=== PATIENT | female | born 1945 | race Caucasian/White ===

== ENCOUNTER 2020-02-11 13:49 | Inpatient (IN) | payer OTHER ==
[~2020-02-11] VITALS: Ht 152.4 cm; Wt 47.2 kg
[2020-02-11 13:51] VITALS: BP 135/107
[2020-02-11 15:45] LABS: BASOPHILS 0.9 % (0.0-2.0); EOSINOPHILS 3.6 % (0.0-3.0); HEMATOCRIT 40.6 % (37.0-47.0); HEMOGLOBIN 13.5 gm/dL (12.0-15.0); MCH 31.3 pg (26.0-34.0); MCHC 33.2 g/dL (28.0-37.0); MCV 94.3 fL (80.0-100.0); MONOCYTES 11.1 % (1.0-8.0); PLATELET COUNT 237 thou/uL (150-400); POLYS 47.4 % (36.0-66.0); RBC 4.31 mil/uL (4.20-5.00); RDW 13.2 % (10.5-14.5); WBC 6.4 thou/uL (4.0-11.0)
[2020-02-11 15:57] LABS: ANION GAP 8 mmol/L (7-16); BUN 15 mg/dL (7-18); CALCIUM 8.8 mg/dL (8.5-10.1); CHLORIDE 105 mmol/L (98-107); CO2 29 mmol/L (21-32); CREATININE 0.9 mg/dL (0.6-1.0); GLUCOSE 206 mg/dL (74-106); POTASSIUM 3.8 mmol/L (3.5-5.1); SODIUM 142 mmol/L (136-145)
[2020-02-11 16:03] LABS: SGOT < 5 U/L (15-37); SGPT 202 U/L (30-65); TOTAL BILIRUBIN 0.7 mg/dL (0.2-1.0); TOTAL PROTEIN 6.5 g/dL (6.4-8.2)
[2020-02-11 18:01] LABS: URINE BILIRUBIN NEGATIVE (Negative); URINE BLOOD NEGATIVE (Negative); URINE CLARITY CLEAR; URINE COLOR YELLOW; URINE GLUCOSE-RANDOM* 1+ (Negative); URINE KETONES NEGATIVE (Negative); URINE LEUKOCYTES-REFLEX NEGATIVE (Negative); URINE NITRITE-REFLEX NEGATIVE (Negative); URINE PROTEIN (DIPSTICK) NEGATIVE (Negative); URINE SPECIFIC GRAVITY 1.025 (1.005-1.035)
[2020-02-11] MEDS ORDERED: ARICEPT10 M1 PO (18:15)
[2020-02-11] MEDS ORDERED: LIPITOR40 MG PO (18:15)
[2020-02-11] MEDS ORDERED: PLAVIX 75 MG TA75 MG PO (18:15)
[2020-02-11] MEDS ORDERED: TOPROL XL25 MG PO (18:16)
[2020-02-11] MEDS ORDERED: NITROSTAT0.4 M1 DISSOLVE (18:16)
[2020-02-11] MEDS ORDERED: CLARITIN10 MG PO (18:16)
[2020-02-11] MEDS ORDERED: SEROQUEL 25 MG25 MG PO (18:17)
[2020-02-11] MEDS ORDERED: REMERON15 M2 PO (18:17)
[2020-02-11 18:57] VITALS: BP 135/107
[2020-02-11 20:45] VITALS: BP 126/82
--- NOTE | 2020-02-11 21:58 | NUR ---
PATIENT ADMITTED AND BROUGHT TO [facility] FROM ED BY AT 2020. SHE IS QUIET AND SUBDUED AND A/0X1. PATIENT HAD HAD GEODON 5MG IM IN ED AT 1447 AND HAD BEEN RESTING SINCE. PATIENT WAS [place] [facility] [place] TO INCREASED AGITATION AND COMBATIVENESS WITH ALZHEIMERS/DEMENTIA. PATIENT WAS FEELING COLD AND PHYSICAL ASSESSMENT LIMITED D/T PATIENT'S IMPATIENCE AND FEELING COLD. SKIN INTACT. NO WOUNDS SEEN. LUNGS CTA BILATERALLY. NO EDEMA. HEART RATE S1S2 HEARD. BOWEL SOUNDS POSITIVE X4. ABDOMEN NONTENDER. PATIENT DENIES PAIN. PATIENT HAS [employer] INSURANCE. SHE CURRENTLY IS UNDER THE CARE OF A NEUROLOGIST ADÁN NIELSON MD AT [facility]. SPOKE WITH PATIENT'S BROTHER ED OLDER AND HIS FAROOQ WHO ARE DPOA'S FOR PATIENT. HE STATES PATIENT SHUFFLES WHEN SHE WALKS. SHE USES A WALKER. SHE IS OBSTINATE AND STRONG WILLED PER DPOA. 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 SHE DENIES AVH/SI/HI AT THIS TIME BUT LIMITED EVAL D/T DEMENTIA. DPOA STATES SHE HAS HISTORY OF AVH'S. SHE HAS RECENTLY HAD THE DELUSION THAT SHE RECENTLY AND HAS A DAUGHTER AND THIS MAKES HER HAPPY. PATIENT HAS HISTORY OF ALZHEIMER'S DEMENTIA, HLD, TIA, CAD, OA, DM2 (WHICH IS DIET CONTROLLED). SHE HAD LEFT HIP REPLACED 10YEARS AGO AND FAMILY STATES SHE HAS NEVER BEEN THE SAME SINCE AND STARTED DECLINING. PATIENT HAS BEEN AT [facility] [place] [facility]ARS AND HAS BEEN IN [facility]IVE LIVINGS OR NH'S FOR PAST 4 YEARS. SHE IS NOT ALLERGIC TO ANY MEDS. SHE IS A FULL CODE. PATIENT HAS A HISTORY OF RECENT FALLS. SHE WILL NEED ASSIST X 1 ON TRANSFERS AND WALKING WITH WALKER. PATIENT IS ON BLOOD THINNER, PLAVIX. INCONTINENT AT TIMES OF URINE AND STOOL. DPOA'S ARE NOT WANTING PATIENT TO STAY ON [facility] FOR MORE THAN 4 [address]. [address] ARE WANTING DR VASQUEZ,DO TO CONTACT THEM SOON HE HAS A PLAN FOR PATIENT TO DISCUSS HOW SOON SHE CAN GO BACK TO [facility]. TONIGHT, PATIENT'S AFFECT IS FLAT AND PATIENT IS DROWSY. SHE IS SLEEPING AT THIS TIME. BED IN LOW POSITION AND BED ALARM IS ON AND WALKER BESIDE BED. ROUTINE ROUNDS TO ASSESS PATIENT'S STATUS AND SAFETY. TELEPHONE CONSENTS FOR TREATMENT ETC RECEIVED BY ED OLDER DPOA AT 2115. HOSPITALISTEricaDIRECTOR OF AGRONOMY NOTIFIED OF NEW ADMIT AND WILL BE UNDER DR CANNON'S CARE. WILL CONTINUE TO MONITOR.
--- NOTE | 2020-02-12 02:28 | NUR ---
PATIENT HAS BEEN SLEEPING SOUNDLY SO FAR TONIGHT. BED IN LOW POSITION AND BED ALARM IS ON. WALKER AT BEDSIDE. WILL CONTINUE TO MONITOR.
[2020-02-12 07:27] VITALS: BP 134/92
[2020-02-12 08:00] VITALS: BP 134/92
--- NOTE | 2020-02-12 08:18 | NUR ---
PT NEEDED ASSISTANCE THIS AM TO USE BATHROOM. PT DIDN'T WANT TO HAVE BRIEF CHANGED THIS AM WITHOUT SOME RESISTANCE. PT NOT HITTING STAFF JUST NOT WANTING TO HAVE HELP. PT BRIEF WAS DRY. PT WAS UP TO BATHROOM WITH WALKER, NEEDED W/C FOR DINING AREA. PT DID REFUSE MEDS THIS AM. PT STATED THAT SHE DIDN'T NEED IT. OFFERED PT WATER. PT STATED SHE DIDN'T NEED IT AND TAKE IT AWAY. PT IRRITATED WITH STAFF TRYING TO GIVE MEDICATION, PT ELBOWED STAFF AND WAS WANTING TO THROW MED CUP. PT HAS TRAY INFRONT OF HER AND SHE ISN'T EATING.
--- NOTE | 2020-02-12 10:50 | NUR ---
PT TALKING TO REC THERAPY. PT PICKED OUT A CARD IN THE [facility] AND SHOWED REC THERAPY A PIC OF HER SON. SHE ALSO HAD EGGS ON HER CHAIR AND STATED THAT THE DOG WAS EATING WITH HER AND IS MESSY.
--- NOTE | 2020-02-12 12:17 | NUR ---
ATTEMPTED TO GIVE SEROQUEL CRUSHED IN YOGAR. PT REFUSING TO EAT OR TAKE A BIT OF IT.
--- NOTE | 2020-02-12 12:20 | NUR ---
ATTEMPTED TO GIVE PT SEROQUEL IN YOGART. PT REFUSING TO EAT. PT ASKING FOR GRANNY AND ALSO HAVING VISUAL HALLUCINATIONS TALKING TO SOMEONE NOT THERE.
--- NOTE | 2020-02-12 12:35 | NUR ---
GIVING SHOT OF OLAZIPINE 2.5MG IM FOR REFUSAL OF PO SEROQUEL.
--- NOTE | 2020-02-12 14:01 | NUR ---
PT SITTING IN DINING ROOM STILL AND TALKING TO SELF. PT DIDN'T EAT BREAKFAST OR LUNCH TODAY.
--- NOTE | 2020-02-12 14:36 | NUR ---
GAVE PT SOME ICE CREAM FOR SNACK. PT IS NOT EATING.
--- NOTE | 2020-02-12 16:21 | NUR ---
ATTEMPTED TO GIVE SEROQUEL CRUSHED IN ICE CREAM. PT REFUSED. STATED TO PT SHE HASN'T ATE ALL DAY SHE STATED SHE DID AND THIS DIRECTOR EMPLOYEE COMMUNICATIONS HASN'T BEEN HERE. SHE TOOK DIRECTOR EMPLOYEE COMMUNICATIONS HAND AND DUG HER NAIL INTO DIRECTOR EMPLOYEE COMMUNICATIONS RT PALM.
--- NOTE | 2020-02-12 16:36 | NUR ---
PT REFUSED PO SEROQUEL. GOING TO ADM ZYPREXIA 2.5MG IM TO LEFT DELTOID.
--- NOTE | 2020-02-12 17:46 | NUR ---
PT HAS REFUSED TO EAT, DRINK, AND TAKE MEDS THIS SHIFT. PT BRIEF WAS WET THIS AM. PT WAS CHECKED AT 1650. NO URINE AT THIS TIME.
[2020-02-12 19:22] VITALS: BP 123/57
--- NOTE | 2020-02-12 21:51 | H ---
[facility] [place] [address] HISTORY AND PHYSICAL Name: CADEN VALDEZ Room #: 518A-A ADM IN M.R.#: [id number] Admission: 02/11/20 Attend Phys: Jeffrey Piper DO Discharge: Date of : 45 Report #: [id number] THIS REPORT FOR: cc: NELI - No family physician/PCP FAM - No family physician/PCP Jeffrey Piper DO ~ CC: Jeffrey QUINTEROS physician/PCP DATE OF SERVICE: 02/12/2020 INPATIENT PSYCHIATRIC EVALUATION ATTENDING PHYSICIAN: Jeffrey Piper D.O. ETCHER ENAMELING: Yoan Boateng M.D. REASON FOR ADMISSION: Combativeness, agitation, impulsive behavior at [facility]. SOURCES OF INFORMATION: Notes from nursing facility, some outside records, Emergency Room notes, telephone conversation with her brother, Gen, who is her DPOA. HISTORY OF PRESENT ILLNESS: This is a 74-year-old female, frail appearing, in wheelchair. Height 152.4 cm, BMI 22.1. The patient was interviewed in the Emergency Room briefly yesterday as well as in the dining room today. The patient has a roughly 5-year history of a neurodegenerative disorder with 1 year of nursing facility placement. Most of that has been in memory care. PAST MEDICAL HISTORY: Extensive and includes hyperlipidemia, historical myocardial infarction, TIAs in the past, unspecified dementia, osteoarthritis, atherosclerotic heart disease, history of left foot fracture, abnormal weight loss, etc. The patient's medical diagnoses include hypertension, diabetes mellitus, left hip, adenomatous polyp of the colon, hyperlipidemia, diabetes mellitus type 2, CAD, cyanocobalamin deficiency. SOCIAL HISTORY: Remote former smoker. No tobacco. No alcohol or drug use. States [facility] saw her. She was hitting and kicking. She sat on the floor, would not let anyone get her off the floor. She was given 5 mg of Haldol. Her Seroquel was increased to 75 mg 3 times a day. The patient is refusing to take p.o. meds. She also is refusing to eat. These issues have continued. This morning, she refuses to take her p.o. meds. She has been sitting in common area and remains agitated. She was hitting and kicking, hard [facility] [address] [place] [address] HISTORY AND PHYSICAL Name: CADEN VALDEZ Room #: 518A-A [facility] IN .R.#: [id number] Admission: 02/11/20 Attend Phys: Jeffrey Piper DO Discharge: Date of : 45 Report #: [id number] to redirect. That is when this provider elected to send her to [facility] and it was Boy Fontenot who made that decision. MEDICATIONS: At [facility], Seroquel 50 mg by mouth 3 times a day for hallucinations. Her DPOA's name is Gen Butler at [phone]. The patient at this point, I believe, is a full code. Other medications at [facility], atorvastatin 40 mg daily, liquid clopidogrel 75 mg daily, donepezil 10 mg by mouth, loratadine 20 mg, metoprolol succinate 25 mg p.o. daily, Nitrotap p.r.n., Remeron 15 mg. Seroquel 25 mg 3 times a day, I guess that is aggregated 75 mg 3 times a day. LABORATORY DATA: From the Emergency Room here at [place] are as follows: White blood cell count 6.4, H and H 13.5 and 40.6, platelet count 237. Chemistries: Sodium 142, potassium 3.9, chloride 105, bicarbonate 29, anion gap 8, BUN 15, creatinine 0.9, estimated GFR 61, glucose 206. A1c has been ordered, not received. Calcium 8.9, total bilirubin 0.7, AST less than 5, ALT is high at 202, alkaline phosphatase normal at 86, total protein 6.5, albumin low at 3.0. B12 and 1,25-dihydroxy has been ordered and has not received, and that is incorrect, it should be a D,25, not a 1,25, so I will change that. From the Emergency Room yesterday, a 12-lead EKG was done, showed QTC 470, QT 474, MS interval 127, ventricular rate 59, sinus rhythm, otherwise grossly normal. REVIEW OF SYSTEMS: From the Emergency Room, limited secondary to dementia. PHYSICAL EXAMINATION: VITAL SIGNS: This a.m., temperature 36.9, pulse 53, respirations 14, BP 134/92, O2 sat 99%. MUSCULOSKELETAL: Seated in wheelchair. Gait not tested. MENTAL STATUS EXAMINATION: This is a well-developed, frail, somewhat, ill-appearing female, appearing stated age. She is oriented to person, does not know where she is at. Does not know the day of the week. No psychomotor agitation. No psychomotor retardation. Speech slow, soft. Thought process: Linear and limited. Thought content: Relative poverty of thought. Mood and affect: Congruent, constricted. Memory: Not formally tested, noted to be impaired. Denied suicidal or homicidal ideations. Denied auditory, visual, or tactile hallucinations. Insight: Limited. Judgment: Impaired. Fund of knowledge: Below average. FORMULATION: A 74-year-old female sent from [facility] for behavioral decompensation. PLAN: Evaluate, stabilize, obtain collateral. DIAGNOSES: At this time, major neurocognitive disorder, likely due to Alzheimer's disease with behavioral disturbance. Other morbidities including [facility] [address] [place] [address] HISTORY AND PHYSICAL Name: CADEN VALDEZ Room #: 518A-A ADM IN ..#: [id number] Admission: 02/11/20 Attend Phys: Jeffrey Piper DO Discharge: Date of : 45 Report #: [id number] hypertension, history of coronary artery disease, hyperlipidemia. With regards to her medications, we will reduce mirtazapine to 7.5 mg p.o. at bedtime. I will go ahead and increase her Seroquel, was going to do 25 at 9 and 3 and 75 at night. We will make that 75 three times a day to start. However, she is refusing, so she did get a 2.5 mg olanzapine backup injection today. Continue Plavix 75 mg p.o. daily, Mylanta, metoprolol succinate 25 mg p.o. daily. Evaluate, stabilize. ESTIMATED LENGTH OF STAY: 7-10 days. I spoke with her older brother, discussed, and actually she is going to be a no code, that we would need to back up the medications. Risks, benefits, alternatives of antipsychotics including the risk of stroke and were discussed. She consented. STRENGTHS: She is insured, has supportive family and DPOA. WEAKNESSES: She does have fairly advanced major neurocognitive disorder as well as some comorbidities. Time spent on interview, review of records, coordination of care was at least 30 minutes with at least 60 minutes spent on general physical, history taking, interview. <ELECTRONICALLY SIGNED> By: Jeffrey Piper DO 02/12/20 [id number] Jeffrey Piper, /nt
[2020-02-12 22:20] VITALS: BP 123/57
--- NOTE | 2020-02-13 01:28 | NUR ---
Assumed care of patient this pm shift. Patient sitting in mileu. Patient would not answer questions this evening and just sat in the chair during her assessment. Patients affect is flat. Patient is alert and oriented to self only. Patient can take medications whole but refused them this evening stating that medications do not do any good. Patient recieved an IM injection of olanzipine instead of PO medications. Patients assessment shows no signs of acute distress. Patient is a falls risk and has on a yellow shirt. Patient did not voice any concerns or questions this evening. We will continue to monitor per hospital policy.
[2020-02-13 02:06] LABS: GLYCOHEMOGLOBIN (HGB A1C) 6.3 % (4.8-5.6)
[2020-02-13 06:49] LABS: CREATININE 0.8 mg/dL (0.6-1.0); POTASSIUM 4.1 mmol/L (3.5-5.1)
--- NOTE | 2020-02-13 08:53 | EKG ---
[facility] [place] [address] ELECTROCARDIOGRAM REPORT Name: COURTNEYCADEN Room #: [facility]- ADM IN M.R.#: [id number] Admission: 02/11/20 Attend Phys: Jeffrey Piper DO Discharge: Date of : 45 Report #: [id number] THIS REPORT FOR: cc: NELI - No family physician/PCP NELI - No family physician/PCP Rober Barker MD [facility] ~ THIS REPORT FOR: //name// [facility] ED Test Date: 2020-02-11 Test Time: 17:42:23 Pat Name: CADEN VALDEZ Department: Room: [facility] Gender: F Spa Host: ivy : 1945 Requested By: Omi Gerardo Order Number: [id number] MD: Rober Barker Measurements Intervals Warren Rate: 59 P: 39 DC: 127 QRS: -34 QRSD: 84 T: 119 QT: 474 QTc: 470 Interpretive Statements Sinus rhythm Multiple premature complexes, vent & supraven Left axis deviation Abnormal R-wave progression, late transition Nonspecific T wave abnormality No previous ECG available for comparison Electronically Signed On 02-13-2020 8:53:16 CDT by Rober Barker [email or web address] <ELECTRONICALLY SIGNED> By: Rober Barker MD, [facility] 02/13/20 [id number] Rober Barker MD, [facility] /EPI
--- NOTE | 2020-02-13 12:20 | NUR ---
Michoacano spoke with [facility] and provided an update. Michoacano also faxed updates, completed the intake assessment and TP.
--- NOTE | 2020-02-13 12:22 | NUR ---
LATE ENTRY- MARY and DR Piper spoke with pt's DPOA Gen yesterday and provided a report and gained some collatoral information
--- NOTE | 2020-02-13 16:36 | NUR ---
Sitting in WC most of AM, resistant to VS, cares and meds. Alert to name only. Responds to questions with "I can if I want." but then continues to be uncooperative. Speaks to unseen people frequently talking to "Granny." Calm when undisturbed, pinching, scratching and attempting to bite when approached for care. Took meds crushed in chocolate syrup after requesting "Chocolat" multiple times. Denies SI/HI. Breath sounds clear t/o. Reg HR auscultated. Color pink with brisk capillary refill and palpable peripheral pulses. No edema noted. Mucous membranes moist t/o day. Brief dry, bladder scan done [address] Piper aware. Abdomen soft and rounded. No BM documented since admission. Placed in wander chair after lunch with legs elevated.
[2020-02-13 19:58] VITALS: BP 99/72
--- NOTE | 2020-02-13 22:54 | NUR ---
Care of patient assumed at 1915. Patient is sitting at a table in the day room. Calm and cooperatived upon approach. A/O x 2. Denies pain. Denies SI/HI. Says that people are coming in and stripping off her clothes during the day. HS, LS, BS normal. Agrees to take medications if mixed in chocolate syrup. Attempted to administer, and patient spit pills out. Olanzapine 3.75mg IM administered for refusal of oral meds as ordered. Patient dozes on/off in the recliner, then is taken to bed at 2230. Patient is combative with trnasfer.
[2020-02-14 07:49] VITALS: BP 126/99
[2020-02-14 09:33] VITALS: BP 126/99
--- NOTE | 2020-02-14 11:37 | NUR ---
1130 RESUMMED CARE THIS AM FROM OVERNIGHT, PATIENT IN DAY ROOM SITTING QUIET. PATIENT ATE BREAKFAST TOOK MEDICATION WITHOUT INCIDENCE, PATIENT DENIES SI/HI/AH/VH AT PRESENT. PATIENT RECEPTIVE TO ASSESSMENT PATIENTS ABDOMEN SOFT ROUND. BOWEL SOUNDS PRESENT LUNGS CLEAR SKIN PINK MOIST NO SKIN TEARS. PATIENT CALM COOPERATIVE ORIENTED TO SELF ONLY. WILL CONTINUE TO MONITOR PATIENT FOR SAFETY AND BEHAVIORS.
[2020-02-14 19:39] VITALS: BP 130/98
--- NOTE | 2020-02-15 02:28 | NUR ---
8 CARE TRANSERED 0 OBSERVED PT IN DAY ROOM SITTING IN RECLINER. 1950 PT AAOX1, PT PRESENTS CONFUSED AND IRRITABLE WITH FLAT EFFECT BUT COOPERATIVE THROUGHOUT NURSING ASSESSMENT. PT REPORTED IT CLOSE TO CAT, DID ANSWER 2019 ON YEAR, PT WAS REORIENATED TO DATE, PT STATED "TOLD YOU IT WAS CLOSE TO CAT". PT DENIED ANY NEW CONCERS AT THIS TIME. PT DID REPORT GENERALIZED PAIN, ACHING AND SCALED PAIN 5 ON 0-10 SCALE. DURING MEDICATION ADMIN PT SPIT OUT SOME OF MEDICATION THAT WAS CRUSHED IN APPLESAUCE, PT REPORTED "I DON'T NEED ANY OF THESE MEDICATION". DURING REASSESSMENT PT SCORED PAIN AT 3 ON 0-10 SCALE. ZERO S/S OF ACUTE EMOTIONAL OR MEDICAL DISTRESS NOTED. WILL CONTINUE TO MONITOR PER [facility] PROTOCOL.
[2020-02-15 07:40] VITALS: BP 101/70
[2020-02-15 09:33] VITALS: BP 101/70
--- NOTE | 2020-02-15 10:31 | NUR ---
1020 RESUMMED CARE FROM OVERNIGHT SHIFT THIS AM, PATIENT IN DAY ROOM IN RECLINER QUIET. PATIENT DID NOT EAT MUCH BREAKFAST TOOK MEDICATTION CRUSHED IN APPLESAUCE. PATIENTS ABDOMEN SOFT FLAT BOWEL SOUNDS PRESENT LUNGS CLEAR. PATIENT DENIES SI/HI/AH/VH AT PRESENT, PATIENT CONFUSED AT TIMES ORIENTED TO SELF ONLY. PATIENT SLEEPS OF AND ON IN RECLINER PATIENT SOMETIMES COMBATIVE WITH CARES. WILL CONTINUE TO MONITOR PATIENT FOR BEHAVIORS AND SAFETY.
--- NOTE | 2020-02-16 01:24 | NUR ---
02-15-20 CARE TRANSFERED AT 1900 OBSERVED PT SITTING IN RECLINER IN DAY ROOM. 2049 PT AAOX1 PRESENTS DELUSIONAL STATED "I WAS TODAY, ISN'T THE ANABAPTIST BEAUTIFUL". WHEN TRYING TO REORIENTATED PT TO PRESENT PT BECAME IRRITABLE AND PT STATED "I KNOW I AM OLD". PT WAS COOPERATIVE BUT IRRITABLE BUT DID DENIES SI/SH/HI/VAH AND PAIN. PT VSS, RR EVEN AND NONLABORED ON RA. DURING MEDICATION ADMIN PT STATED I WILL TAKE MY MEDICATION THEN REFUSED TO OPEN MOUTH FOR MEDICATION IN APPLESAUCE. PT STARTED BECOMING AGITATED. PT REPORTED "I DON'T NEED ANY MEDICATION", PT HIGHLY AGITATED AND IM WAS ADMIN PER HCP ORDERS. DURING IM PT REPORTED "SHE WAS HOLDING HER NEW BABY" OBSERVED PT SLOWLY ROCKING BACK AND FORTH IF SHE WAS HOLDING A BABY. TRIED TO REDIRECT PT AND PT BECAME AGITATED. DURING NEXT ROUND NOTED PT WAS LEFT SIDE LYING WITH EYES CLOSED, RR EVEN AND NONLABORED ON RA. ZERO S/S OF ACUTE EMOTIONAL OR MEDICAL DISTRESS NOTED. WILL CONTINUE TO MONITOR PER [facility] PROTOCOL.
[2020-02-16 07:20] VITALS: BP 95/71
[2020-02-16 11:07] VITALS: BP 123/73
[2020-02-16 11:19] VITALS: BP 123/73
--- NOTE | 2020-02-16 12:32 | NUR ---
Pt was in lounge chair this am . Pt was seemed distracted lisening and talking to some one else not seen, by staff. Pt was not medication compliant . Im Geodon given as ordered at 10:00 am for not taking any po medications. Pt responds to what is said to her but has a combative and irritable response.. Dr quintana aware. Pt did not eat any breakfast or or fluids even with much encouragement Lunch mediciation was given with yogart (1 tesp. with crushed medcation in it. Staff encouraged pt to try to eat and drink. staff continues to be observed. .
[2020-02-16 19:41] VITALS: BP 83/61
--- NOTE | 2020-02-16 21:16 | NUR ---
Care of patient assumed at 1915. Patient is sitting in a recliner in the day room. Patient is noted to be attending to internal stimuli, appearing to listen to and repsond to unseen entities. When approached, patient answers to her name oliver, daphney jacobsen "don't you touch me" when asked if heart sounds could be ausculated. From that point forward patient is hostile and uncooperative. Refuses HS meds. Dr. Piper notified of refusal.
[2020-02-17 07:31] VITALS: BP 133/85
--- NOTE | 2020-02-17 08:53 | NUR ---
MARY sent faxes over the weekend as updates. Today MARY called and left a VM with admissions that this pt might be ready to d/c at the end of this week back to [facility]
[2020-02-17 09:50] VITALS: BP 133/85
[2020-02-17 10:27] VITALS: BP 133/85
[2020-02-17 10:40] VITALS: BP 133/85
--- NOTE | 2020-02-17 11:43 | NUR ---
1115 RESUMMED CARE FROM OVERNIGHT SHIFT THIS AM, PATIENT IN DAY ROOM IN A RECLINER. PATIENT A LITTLE OF HER BREAKFAST AND TOOK MEEICATION CRUSHED IN CHOCOLATE PUDDING. PATIENT NOT ABLE TO VERBALIZE SI/HI/AH/VH AT PRESENT DUE TO COGNITIVE DISTURBAMCE. PATIENTS ABDOMEN SOFT ROUND BOWEL SOUNDS PRESENT LUNGS CLEAR. PATIENT HAS CONFUSION AND ORIENTED TO SELF ONLY PATIENT SOMETIMES COMBATIVE WITH CARES. WILL CONTINUE TO MONITOR PATIENT FOR SAFETY AND BEHAVIORS.
--- NOTE | 2020-02-17 13:25 | NUR ---
MICHOACANO spoke with GANGA Blevins and provided an update. he was under impression that this pt was discharging today or tomorrow. Michoacano provided education and reassuance that d/c was likelt later this week - as she has been non complaint with meds and will need some more compliance to be ready for the NH. Michoacano did speak with admissons at an they brought the updates to their DON and are reviewing.
[2020-02-17 20:05] VITALS: BP 106/73
--- NOTE | 2020-02-18 03:32 | NUR ---
Care of patient assumed at 1915. Patient is dozing in a recliner in the day room. Initially pleasant upon approach, but quickly get irritated (after 2 questions) and refuses to answer more. Attempted again with medications but patient refused. Assisted to toilet and then to bed at 2200.
[2020-02-18 07:53] VITALS: BP 111/57
[2020-02-18 10:15] VITALS: BP 111/57
--- NOTE | 2020-02-18 12:05 | NUR ---
1200 RESUMMED CARE FROM OVERNIGHT SHIFT THIS AM, PATIENT IN RECLINER IN DAY ROOM LYING QUIET. PATIENT IS UNABLE TO TELL YOU ABOUT SI/HI/AH/VH DUE TO COGNITIVE DELAYS. PATIENT HAS CONFUSION AND IS FORGETFUL PATIENTS ABDOMEN SOFT FLAT BOWEL SOUNDS PRESENT. PATIENTS LUNGS CLEAR PATIENT EATS VERY LITTLE HER MEDS ARE CRUSHED IN PUDDING. PATIENT IS COMBATIVE WITH CARES WILL CONTINUE TO MONITOR PATIENT FOR BEHAVIORS AND SAFETY.
--- NOTE | 2020-02-18 19:18 | NUR ---
Care of patient assumed at 1915. Patient is sitting in recliner in day room. Confused and disoriented, but cooperates with physical assessment. HS, LS, BS normal. Denies pain. Patient answers with nonsensical responses to further questions. Falls asleep in recliner. Taken to toilet, then bed at 2200. Patient combative with industrial locomotive operator assisting her.
--- NOTE | 2020-02-19 09:05 | NUR ---
[facility]ano faxed updates to [facility]
[2020-02-19 13:46] VITALS: BP 112/78
[2020-02-19 13:48] VITALS: BP 112/78
--- NOTE | 2020-02-19 13:49 | NUR ---
REFUSED ALL AM MEDICATIONS AND INITALLY REFUSED VS FOR FULLING MACHINE OPERATOR-DID ALLOW JOSÉ BP/PULSE RESPIRATION CHECK AT APPROX 1345 WITH MUCH ENCOURAGEMENT-WHEN APPROACHED BY STAFF IS NOTED TO HAVE ANGRY FACIAL EXPRESSION- STATES "GET AWAY LEAVE ME ALONE-JUST LEAVE ME ALONE" MINIMQALLY COOPERATIVE WITH PHYSICAL ASSESSMENT BUT DENIES C/O PAIN/DISCOMFORT. REPOSITIONED IN GERICHAIUR SEVERAL TIMES SLIDES DOWN AND CURLS SELF IN POSITION-COMBATIVE WITH REPOSITIONING AND INCONTINENT CARE. ORIENTED TO NAME ONLY-APPEARS SUSPICIOUS OF STAFF "I DON'T WANT YOUR KIND OF HELP GOD ONLY KNOWS WHAT YOU WOULD DO TO ME"SKIN W/D-REFUSES TO ALLOW TEMP ORALLY AND BEGINS TO STRIKE OUT WITH ATTEMPTS AT AXILLARY CHECK- DOES NOT FEEL WARM TO TOUVH BUT WILL REAPPROACH AT LATER TIME
--- NOTE | 2020-02-19 20:11 | NUR ---
Assumed care on 02/19/20 @ 19:15, lying in a wander chair in the day room, curled up in a position. When spoken to opens eyes and responds verbally however, answers a different question than asked. Cane give name and month and day of , but gives the year as 1982. Reports we are in [facility], but cannot say the hospital name or even acknowledge that she is in a hospital. Allows auscultation of lungs (CTA) a cough is noted during assessment, and allows abdomen (N BS), says BM information is none of my business. Guards her left chest and does not allow this nurse to auscultate heart sounds. Clear voice, however confused and speaks nonsense grouping of words at times in a word salad manner.
--- NOTE | 2020-02-20 05:52 | NUR ---
Slept in bed, eyes closed, respirations even and unlabored. Bed in low position, bed alarm set. Monitoring q 12 minutes as per protocol.
[2020-02-20 07:40] VITALS: BP 129/68
--- NOTE | 2020-02-20 11:00 | NUR ---
Michoacano spoke with Mohan at [facility] and Michoacano provided a report that included d/c expected on Sunday with hospice. MICHOACANO reported that Dr martin will speak with family and the referral for hospice will be initated from here.
--- NOTE | 2020-02-20 11:25 | NUR ---
ANGRY FACIAL EXPRESSION UPON ANY INTERACTION WITH STAFF-WHEN PHYSICALLY TOUCHED FOR VS OR AM ASSESSMENT IMMEDIATLY BECOMES RESISITVE PULLING AWAY FROM STAFF AND SWEARING "YOU BITCH LEAVE ME ALONE" ATTEMPTED VS X2 WITH ASSIST OF TWO STAFF THIS AM BUT UNABLE TO OBTAIN D/T ACTIVE RESISTANCE. DID TAKE AM MEDS CRUSHED IN CHOCOLATE PUDDING. SITTING IN GERICHAIR IN DAYROOM-REPOSITIONED FOR COMDORT SEVERAL TIMES BUT IMMEDIATLY LOWERS SELF TO POSITION IN CHAIR. INCONT OF URINE-PERINEAL CARE PROVIDED-COMBATIVE WITH CARES-STRIKING OUT AT STAFF-REQUIRES 2-3 STAFF. DENIES C/O PAIN/DISCOMFORT. "
--- NOTE | 2020-02-20 12:47 | NUR ---
MARY spoke with Gen and provided a d/c plan update and reinforced that he can call Dr martin and provided his phone number. D/C is expected 02/22. Time to be determind.
--- NOTE | 2020-02-20 15:53 | NUR ---
MARY spoke with Ja ( not radha) [phone] and he reported that Abiel in admisisons will need ot do a virtual assesment of the pt on Sunday AM and a d/c will be scheduled for about 3PM. Hospice eval will be completed when this pt is back at [facility].
[2020-02-20 20:14] VITALS: BP 111/68
--- NOTE | 2020-02-21 04:36 | NUR ---
CARE TRANSFERRED 02-20-201914 OBSERVED PT IN DAY ROOM IN RECLINER. 2049 PT AAOX1, VSS, RR EVEN AND NONLABORED, PT DENIES PAIN AND SI/SH/HI/VAH BUT PT PRESENT IRRITABLE AND COMBATIVE REFUSING NURSING ASSESSMENT. DURING MEDICATION ADMIN PT HAD NO DIFFICULTIES. ZERO S/S OF ACUTE EMOTIONAL OR MEDICAL DISTRESS NOTED. WILL CONTINUE TO MONITOR PER [facility] PROTOCOL.
[2020-02-21 07:01] VITALS: BP 105/69
[2020-02-21 09:24] VITALS: BP 105/69
--- NOTE | 2020-02-21 18:50 | NUR ---
1600 RESUMMED CARE FROM OVERNIGHT SHIFT THIS AM, PATIENT IN DAYROOM IN RECLINER. PATIENT COOPERATIVE FOR ASSESSMENT THIS AM ABDOMEN SOFT FLAT BOWEL SOUNDS PRESENT. PATIENTS LUNGS CLEAR PATIENT ORIENTED TO SELF ONLY, PATIENT TOOK MEDICATION CRUSHED IN ENSURE CHOCLATE PUDDING. 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 PATIENT HAS BEEN QUIET IN RECLINER; PATIENT SOMETIMES IS COMBATIVE WITH CARE. WILL CONTINUE TO MONITOR PATIENT FOR BEHAVIORS AND SAFETY.
--- NOTE | 2020-02-22 03:45 | NUR ---
02-21-20 CARE TRANSFERED 1899 OBSERVED PT SITTING IN RECLINER IN DAY ROOM. 193 PT AAOX1, SKIN W/D, RR 14 EVEN AND NONLABORED ON RA, PT DENIES PAIN AND SI/SH/HI/VAH. PT REFUSED ANY FURTHER NURSING ASSESSMENT AND VS FROM MED AIDE. PT WAS REAPPROACHED BY THIS RM FOR VS AND PT AGAIN REFUSED. LATER NOTED PT RESTING LEFT SIDE LYING WITH EYES CLOSED IN BED, RR EVEN AND NONLABORED. ZERO S/S OF ACUTE EMOTIONAL OR MEDICAL DISTRESS, WILL CONTINUE TO MONITOR PER [facility] PROTOCOL.
[2020-02-22 09:18] VITALS: BP 124/83
[2020-02-22 10:15] VITALS: BP 124/83
--- NOTE | 2020-02-22 11:28 | NUR ---
1115 RESUMMED CARE FROM OVERNIGHT SHIFT THIS AM, PATIENT IN DAY ROOM IN RECLINER SITTING QUIETLY. PATIENT ATE SMALL AMOUNT OF BREAKFAST TOOK MEDICATION WITH ENSURE PUDDING CRUSHED. PATIENTS ABDOMEN SOFT FLAT BOWEL SOUNDS PRESEMT. PATIENTS LUNG CLEAR PATIENT CALM COOPERATIVE ONLY COMBATIVE WITH CARES. PATIENT IS CONFUSED AND NOT ABLE TO TELL YOU ABOUT SI/HI/AH/VH AT PRESENT. WILL CONTINUE TO MONITOR PATIENT FOR BEHAVIORS AND SAFETY.
[2020-02-22 20:04] VITALS: BP 109/63
--- NOTE | 2020-02-23 04:15 | NUR ---
02-22-20 CARE TRANSFERED 1899 OBSERVED PT SITTING IN DAY ROOM IN RECLINER. 1940 PT AAOX1, VSS, RR EVEN AND NONLABORED ON RA. PT PRESENTS CONFUSION AND DELLUISON OF BEING IN A FAR AWAY PLACE, PT DENIED PAIN AND SI/HI, BUT UNABLE TO DETERMINE FULLY. PT BODY WAS RELAXED AND NO RESTLESS NOTED. LATER DURING HS SNACK PT ATE 100% OF ICE CREAM CUP, PT HAS BEEN COOPERATIVE, TIL HELPING WITH CHANGE BRIEFS, THEN PT BECAME SOMEWHAT COMBATIVE DURING CARES, ZERO SKIN BREAKDOWN NOTED. LATER NOTED PT RESTING LEFT SIDE LYING IN BED WITH EYES CLOSED. ZERO S/S OF ACUTE EMOTIONAL OR MEDICAL DISTRESS, WILL CONTINUE TO MONITOR PER [facility] PROTOCOL.
[2020-02-23 07:32] VITALS: BP 99/58
[2020-02-23 12:53] VITALS: BP 99/58
--- NOTE | 2020-02-23 13:00 | NUR ---
ASSUMED CARE AT 0700 THIS MORNING. PT. SITTING IN RECLINING CHAIR. STAFF ASSISTED HER WITH BREAKFAST. SHE HAS BEEN SITTING QUIETLY OR SLEEPING QUIETLY IN THE RECLINING CHAIR. SHE WAS COOPERATIVE WITH TAKING HER MEDICATIONS CRUSHED AND IN CHOCOLATE ICECREAM. SHE HAD A SMALL BM THIS MONING WAS REPORTED BY THE HEAD GAUGE UNIT OPERATOR'S. NO NEW PROBLEMS NOTED OR VOICED.
--- NOTE | 2020-02-23 14:07 | NUR ---
MARY called and left a VM with Marti Morales requesting an eval for her readmission. D/C should happen tomorrow.
--- NOTE | 2020-02-23 14:48 | NUR ---
SW completed the nursing assessment via doxy. with pt.
--- NOTE | 2020-02-23 16:21 | NUR ---
[place] confiremd the d/c for tomorrow at 9am. Reported this to nursing and set up transportation.
--- NOTE | 2020-02-23 16:22 | NUR ---
MARY called Gen ( [email or web address] ) to confirm this d/c and that hospice will be initiated once she is back. Mary set up transportation at 9 am.
[2020-02-23 19:52] VITALS: BP 114/73
--- NOTE | 2020-02-23 20:11 | NUR ---
Assumed care on 02/23/20, Seated in wander chair in the day room. cooperates with assessment, HRRR, Lungs CTA ABD N, does not know when last bm was. Denies pain. Will continue to monitor as per protocol.
[2020-02-23 23:35] VITALS: BP 114/73
--- NOTE | 2020-02-24 01:47 | NUR ---
COMPLIANT WITH MEDICATION ADMINISTRATION, TAKING MEDS CRUSHED IN STRAWBERRY JELLY WITH KEVEN ICE CREAM. RETIRED TO BED @ , AND HAS BEEN SLEEPING SINCE. BED IN LOW POSITION, BED ALARM SET, WILL CONTINUE TO MONITOR PER PROTOCOL FOR PATIENT SAFETY AND COMFORT.
--- NOTE | 2020-02-24 06:09 | NUR ---
Slept well overnight for a total of 10.2 hours of sleep.
[2020-02-24 07:52] VITALS: BP 142/77
[2020-02-24 08:30] VITALS: BP 135/107; BP 142/77
[2020-02-24 08:31] VITALS: BP 142/77
[2020-02-24] MEDS ORDERED: FLOMAX0.4 MG PO (08:53)
--- NOTE | 2020-02-24 09:43 | NUR ---
SW faxed d/d orders and summary. SW made packet and left on chart.
--- NOTE | 2020-02-24 09:45 | NUR ---
0700 ASSUMED CARE OF PATIENT, PATIENT SITTING IN DAYROOM IN [facility]. 0800 PATIENT EATING BREAKFAST AT THAT TIME PATIENT ONLY CONSUMES PUDDING THIS AM. WREATH AND GARLAND MAKER HAND ASKED PATIENT IF PUDDING WITH MEDICATION IS OK PATIENT STATES "YES". MEDICATIONS GIVEN CRUSHED WITHOUT DIFFICULTY IN PUDDING. PATIENT ONLY ANSWERS YES AND NO QUESTIONS. NO C/O PAIN. 0850 PATIENT TAKEN TO ROOM, CLEANED UP BY FOIL OPERATOR'S. PATIENT IS COMBATIVE WITH CARES. 0910 [facility] TRANSPORT HERE, PATIENT TRANSFERED TO X2 ASSIST. 0920 PATIENT DC'D VIA ACCOMPANIED BY BORDER POLICE AND STAFF TO [facility]. BELONGING WITH PATIENT ALONG WITH PAPERWORK IN HAND. ATTEMPTED TO CALL FACILITY TO GIVE REPORT. UNABLE TO COMMUNICATE AT THIS TIME, WILL CONTINUE TO OBSERVE.
--- NOTE | 2020-02-25 23:21 | D ---
[facility] [place] [address] DISCHARGE SUMMARY Name: CADEN VALDEZ Room #: 518A-A [facility] IN M.R.#: [id number] Admission: 02/11/20 Attend Phys: Jeffrey Piper DO Discharge: 02/24/20 Date of : 45 Report #: [id number] THIS REPORT FOR: cc: NELI - Vianca family physician/PCP NELI - No family physician/PCP Jeffrey Piper DO ~ THIS REPORT FOR: //name// CC: Jeffrey QUINTEROS physician/PCP DATE OF SERVICE: 02/24/2020 INPATIENT PSYCHIATRIC DISCHARGE SUMMARY ATTENDING PSYCHIATRIST: Jeffrey Piper DO. EQUIPMENT INSTALLER: Jeffrey Naranjo MD DISCHARGE DIAGNOSES: Major neurocognitive disorder, likely due to Alzheimer's disease with behavioral disturbance, improved. Medical comorbidities include hypertension, stable; hyperlipidemia, stable. Also, has a gait disturbance, essentially wheelchair bound. The patient will be discharging to, I believe, at [facility]. CONDITION AT DISCHARGE: Stable. DISCHARGE MEDICATIONS: As follows: Plavix 75 mg p.o. daily for heart protection; loratadine 10 mg p.o. daily for allergic rhinitis; metoprolol succinate 25 mg p.o. daily, recommend to hold if pulse less than 60; nitroglycerin 0.4 mg p.r.n. chest pain. Other medications were stopped at this admission to decrease pill burden including quetiapine and the patient uses Ensure pudding and also chocolate with all meals. She requires to be fed basically a mechanical chopped diet. Otherwise, regular food choices. LABORATORY DATA: Significant laboratories this admission, white count 6.4, H and H 13.5 and 40.6, platelet count 237. Chemistry: Sodium 140, potassium 4.1, chloride 104, bicarbonate 26, anion gap 10, BUN 12, creatinine 0.8, estimated GFR 70, glucose 88, calcium 9.0, vitamin B12 level was 1132. Hemoglobin A1c came back at 6.3, estimated average glucose 134. Urinalysis had 2+ urobilinogen, 1+ glucose, otherwise within normal limits. COVID-19 PCR was negative on 02/11/2020. It is showing us still pending for 02/23/2020. REASON FOR ADMISSION: Back to the end of January, a 74-year-old female who presents to the ED secondary to combative behavior at nursing facility. [address] [address] DISCHARGE SUMMARY Name: CADEN VALDEZ Room #: 518A-A [facility] IN ..#: [id number] Admission: 02/11/20 Attend Phys: Jeffrey Piper DO Discharge: 02/24/20 Date of : 45 Report #: [id number] HOSPITAL COURSE: The patient was admitted to Geriatric Psychiatry Unit. We had attempted to feed her with scheduled Seroquel and was given IM olanzapine injections. The patient became resistant to the medication. I made the decision that it really was not advantageous to be of course on the antipsychotic as this is not going to be done in the alf and her behavior would suffice. She is essentially under that zone where if she stops eating, she will definitely meet hospice criteria. We had several family meeting type discussions as best we can during the epidemic including with brother Gen. Hospice consultation was advised. At time of discharge, the patient was in stable condition. PHYSICAL EXAMINATION: VITAL SIGNS: On the day of discharge, temperature 36.6, pulse 90, respirations 12, BP 142/77, O2 sat 94%. MUSCULOSKELETAL: In a Krystal chair, poor posture nonambulatory. MENTAL STATUS EXAMINATION: This is a well-developed, ill-appearing, frail female appearing older than stated age. Attention limited. Concentration impaired. Speech is normal rate. Linear and very limited thought content. General poverty of thought. No psychomotor agitation or psychomotor retardation. Denied SI or HI, auditory, visual, or tactile hallucinations. Unclear how well she process these questions before answering. Memory not formally tested, known to be impaired, insight impaired, judgment impaired. Fund of knowledge well below average. PROGNOSIS: For this patient is guarded to poor. <ELECTRONICALLY SIGNED> By: Jeffrey Piper DO 02/25/20 [id number] Jeffrey Piper DO /nt
== END 2020-02-24 09:20 | DRG 57 ==
LOC: ER 13:49 → SBH 18:32 → EROBS 18:32 → SBH 20:51
PROVIDERS: Nurse Practitioner; Physician Assistant; ADMIT Psychiatry & Neurology Psychiatry; ATTEND Psychiatry & Neurology Psychiatry
DX: G30.9 Alzheimer's disease, unspecified (principal); F02.81 Dementia in other diseases classified elsewhere, unspecified severity, with behavioral disturbance; F01.51 Vascular dementia, unspecified severity, with behavioral disturbance; E78.5 Hyperlipidemia, unspecified; I10 Essential (primary) hypertension; M19.90 Unspecified osteoarthritis, unspecified site; Z66 Do not resuscitate; E11.65 Type 2 diabetes mellitus with hyperglycemia; F41.9 Anxiety disorder, unspecified; I25.10 Atherosclerotic heart disease of native coronary artery without angina pectoris; I25.2 Old myocardial infarction; Z79.899 Other long term (current) drug therapy; Z87.891 Personal history of nicotine dependence; Z03.818 Encounter for observation for suspected exposure to other biological agents ruled out
CPT/HCPCS: 10880